=== PATIENT | male | born 1945 | race Caucasian/White ===

== ENCOUNTER 2022-11-26 14:17 | Inpatient (IN) | payer OTHER, MEDICARE ==
[~2022-11-26] VITALS: Ht 167.6 cm; Wt 89.7 kg
[2022-11-26 16:44] LABS: Base Excess Venous -2.3 mmol/L; Bicarbonate Venous 22.7 mmol/L (24.0-30.0); PCO2 Venous 37.7 mmHg (38-42); pH Blood Venous 7.39 (7.34-7.37)
[2022-11-26] MEDS ORDERED: ATOR80 PO (16:46)
[2022-11-26] MEDS ORDERED: AMLO10 PO (16:46)
[2022-11-26] MEDS ORDERED: MULVITA PO (16:46)
[2022-11-26] MEDS ORDERED: OMEP20ER PO (16:47)
[2022-11-26] MEDS ORDERED: TAMS.4ER PO (16:47)
--- NOTE | 2022-11-26 17:21 | NUR ---
PT ARRIVED TO THE MEDICAL FLOOR VIA [facility] FROM [facility] IN [facility]. PT IS ALERT DROWSY ORIENTED TO SELF AND SITTUATION. THE PT WAS ORIENTED TO THE CALL SYSTEM. CALL LIGHT IN REACH. PT HAS AUDIABLE WHEEZES. PT O2 SAT'S > 90% ON O2 @ 2L/MIN. DR. HERBERT WAS IN TO SEE THE PT. WILL CONTINUE TO MONITOR AND ASSESS FOR CHANGES
[2022-11-26 17:54] VITALS: BP 180/92
[2022-11-26 19:04] LABS: Source, Urine Foley catheter
[2022-11-26 19:16] LABS: Appearance, Urine Hazy (Clear); Bilirubin, Urine Neg (Neg); Blood, Urine 5+ (Neg); Color, Urine Yellow (P-Yellow); Glucose Qualitative, Urine 2+ (Neg); Ketones, Urine 4+ (Neg); Leukocyte Esterase, Urine 1+ (Neg); Nitrite, Urine Neg (Neg); Protein, Urine 3+ (Neg); Urobilinogen, Urine NORM (Normal)
[2022-11-26 19:25] VITALS: BP 176/98
[2022-11-26 19:34] LABS: Bacteria Mod /hpf; Mucus Light (0-Heavy); Red Blood Cells, Urine TNTC /hpf (0-2); Squamous Epithelial Cells Rare /hpf (Few)
[2022-11-26 19:47] VITALS: BP 176/98
--- NOTE | 2022-11-26 20:04 | NUR ---
FALL DURING END OF SHIFT REPORT THE PT YELLED OUT AFTER FALLING TO THE FLOOR. UPON ARRIVAL TO THE ROOM THE PT WAS ON THE FLOOR PULLING AT HIS IV LINE CATHETER AND WHATEVER ELSE HE COULD GRAB. THE STATED THAT SOMEONE WAS TRYING TO STANGLE HIM AND HE WAS TRYING TO GET AWAY. PT STATED THAT HE HIT HIS HEAD. A CALL WAS MADE TO THE HOSPITALIST A CT OF THE HEAD WAS ORDERED. PT IS VERY AGITATED. NOC RN WAS IN THE ROOM REPORT WAS GIVEN
--- NOTE | 2022-11-26 20:20 | NUR ---
SOFT WRIST RESTRAINTS INITIATION: LUIZ POLO NOTIFIED OF PT'S ESCALATING BEHAVIOR W/INCREASED CONFUSION AND AMS. HE IS CONFUSED EXCEPT TO SELF AND FELL DURING SHIFT CHANGE AFTER BEING IMPULSIVE OOB BY SELF. HE REMAINS AGGITATED, DIFFICULT TO REDIRECT, IS HALLUCINATING, DOESN'T FOLLOW INSTRUCTION AND HAS BECOME VERY IMPULSIVE AND COMBATIVE. HE'S BEEN PULLING ON GAGNON/IV LINE, HAS SWUNG AT STAFF MULTIPLE TIMES AND HAS THROWN WATER CUPS IN HIS ROOM. HE'S YELLING AND CALLING OUT INCONSOLABLY AND HAS BEGUN MAKING VERBAL THREATS TOWARD STAFF. STAT IM ZYPREXA WAS RX'D AND GIVEN BUT HASN'T BEEN EFFECTIVE AT CALMING PT YET. CAMERA MONITORING WAS COMMENCED AND IS IN PROGRESS W/BED ALARM ON. SOFT WRIST RESTRAINTS ORDERED AND APPLIED AT THIS TIME. WILL REEVALUATE ABILITY TO DC THEM IF PT CALMS AND AMS IMPROVES.
[2022-11-27 01:02] VITALS: BP 180/98
--- NOTE | 2022-11-27 03:06 | NUR ---
PT MANAGED TO GET OUT OF WRIST RESTRAINT AND PULLED HIS NEW IV THAT WAS PLACED EARLIER THIS SHIFT DESPITE BEING MONITORED BY CAMERA. HE WAS ALSO OBSERVED PULLING ON GAGNON, RIPPED OFF HIS ATTENDS AND WAS MAKING ATTEMPTS OOB BY SELF. HIS HR IS NOW SUSTAINING 100'S AND OCCASIONALLY TRENDS UPWARD TO 140'S-150'S. HE IS VERY ANXIOUS, CONT'S TO HALLUCINATE AND IS DOESN'T FOLLOW INSTRUCTION. HE'D BECOME A BIT CALMER FOLLOWING PRIOR DOSE OF ZYPREXA BUT BEHAVIOR SEEMS TO BE ESCALATING AGAIN. MADE AWARE W/ZYPREXA 10MG IM RX'D AND TO BE ADMINISTERED. PT ALSO COMMENCED ON TELEMETRY AND CAMERA MONITORS ALERTED TO WATCH HIM MORE CLOSELY.
[2022-11-27 05:01] VITALS: BP 169/149
[2022-11-27 05:10] VITALS: BP 171/135
--- NOTE | 2022-11-27 06:10 | NUR ---
SUMMARY: PT ORIENTED TO SELF ONLY AND CONT'S TO BE ANXIOUS W/HALLUCINATIONS, IS DIFFICULT TO REDIRECT AND IS FREQUENTLY IMPULSIVE. BEHAVIOR IS LABILE AND CAN ESCALATE QUICKLY, BECOMING AGGRESSIVE AND COMBATIVE AT TIMES, SWINGING AT STAFF. HE FELL DURING REPORT AT BEGINNING OF SHIFT AND HAS SINCE REQUIRED SOFT WRIST RESTRAINTS, CAMERA MONITORING, BED ALARM AND X2 DOSES OF IM ZYPREXA STAT. MEDICATIONS SLIGHTLY CALM PT BUT EFFECTS AREN'T LONG LASTING. HR WAS TACHYCARDIC ON CONT BIOX SO PT WAS PLACED ON TELEMETRY. HE'S S.TACH AT 90'S-100'S BPM W/OCC V.TACH TO 140'S BPM LASTING APPROX 2-3 MINS THEN TRENDING DOWN AGAIN. PT HYPERTENSIVE AT TIMES AND REQ'D HYDRALAZINE IV PRN FOR SBP>160. CHELSI IS PATENT FOR RETENTIONS. HE IS VERY IMPULSIVE AND PULLED HIS PG OUT + HIS 1ST NEWLY PLACED IV DESPITE WRIST RESTRAINTS. NEW IV PRESENT AT THIS TIME W/NS INFUSING AT 75 ML/HR. PT TITRATED UP TO 3L O2 VIA NC TO MAINTAIN SPO2 >90%, CONT BIOX INTACT AND RT PROVIDED BX TX'S FOR WHEEZES. TURN SCHEDULE MAINTAINED FOR SBD PREVENTION. NO ACUTE CHANGES. WCTM AND REPORT TO DAY RN.
--- NOTE | 2022-11-27 06:45 | NUR ---
ALERTED TO V.TACH NOW SUSTAINING HR 120'S-140'S. LOPRESSOR IV X1 RX'D BUT IV NOTED TO HAVE INFILTRATED JUST PRIOR TO ADMINISTERING AM MEDS. ISI ATTEMPTING PG PLACEMENT AT THIS TIME. WILL ADMIN SCHEDULED SOLUMEDROL, STAT LOPRESSOR AND PRN TORADOL WHEN IV ACCESS OBTAINED.
[2022-11-27 07:22] VITALS: BP 185/97
[2022-11-27 08:27] LABS: Hematocrit 41.7 % (37.0-53.0); Hemoglobin 14.5 g/dL (13.5-17.5); Mean Corpuscular HGB 30.4 pg (26.0-34.0); Mean Corpuscular HGB Conc 34.8 g/dL (31.5-36.5); Mean Corpuscular Volume 87 fL (80-100); Mean Platelet Volume 10.4 fL (9.1-12.4); Platelet Count 254 K/mm3 (150-400); RDW Coefficient Variation 13.1 % (11.7-14.2); RDW Standard Deviation 41.6 fL (35.1-46.3); Red Blood Cell Count 4.77 M/mm3 (4.30-5.90); White Blood Cell Count 7.82 K/mm3 (4.00-11.30)
[2022-11-27 08:51] LABS: Bun/Creatinine Ratio 20.9 (12.0-20.0); Calcium, Blood 8.7 mg/dL (8.5-10.1); Creatinine, Blood 0.48 mg/dL (0.60-1.20); Magnesium, Blood 2.3 mg/dL (1.6-2.4)
--- NOTE | 2022-11-27 09:46 | NUR ---
PT ASIPRATING WITH SMALL AMOUNTS OF FOOD AND LFUIDS, PT WILL BE NPO HE IS A HIGH ASPIRATION RISK
--- NOTE | 2022-11-27 11:18 | NUR ---
ATTEMPTED TO REMOVE RESTRAINTS ER V/O FROM DR HERBERT, PT REMAINS VERY CONFUSED AND WAS IMMEDIATELY ATTEMPTING TO EXIT BED AND IS COMBATIVE
--- NOTE | 2022-11-27 15:19 | NUR ---
Pt aggitated and hallucinating. face is mask like and seems unable to blink much eyes are very dry. pt rigid. he was seeing people in the room. Was able to have some conversation with him. Asked where he grew up and where he lived. He stated he grew up in [place] and went into the at [employer] and did ten years. 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 He moved to [place]. Did some therputic time with him told him my home town in [place]. He laughed about how awful it was and asked how i survied. He had brief moments then would halucinate. PT is suffering discussed with rn patient care and physician. Obtained order for eye drops. Will see what speech says tomorrow and then speak to his siter about comfort care and hospice. grocery store manager will contact DC. KPS score is 30%. Concern that his abilty to ventilate will soon start to decline.
[2022-11-27 17:31] VITALS: BP 195/105
--- NOTE | 2022-11-27 18:27 | NUR ---
PT ARRIVED TO ROOM AROUND 1814. PT ORIENTED TO [facility]. RESTRAINTS CHECKED, NO CIRCULATION IMPAIRMENT, NO SKIN BREAKDOWN. BED IN LOW POSITION AND LOCKED. PT LEFT IN A POSITION OF SAFETY.
--- NOTE | 2022-11-27 18:47 | NUR ---
SHIFT SUMMARY PT ORIENTED TO SELF ONLY. RESTRAINTS CHECKED AND NO ABNORMALITIES FOUND. PT ON 3L O2 VIA N/C, CONTINUOUS TELEMETRY REPORTS SINUS TACH IN THE 110S. IV FLUIDS INFUSING THROUGH POWERGLIDE AT A RATE OF 125L/HR. BED LOCKED AND IN LOW POSITION, PATIENT MONITOR IN ROOM FOR OBSERVATION.
[2022-11-27 21:09] VITALS: BP 190/92
[2022-11-28] VITALS (18 sets, daily range): BP systolic 98–215; BP diastolic 61–172
--- NOTE | 2022-11-28 00:40 | NUR ---
PT REPOSITIONED FREQUENTLY THROUGHOUT THE SHIFT. Q2 SAFETY CHECKS COMPLETED, PT HAD SOFT WRIST RESTRAINTS ON. 2255: PT RESTLESS, PRN IM ZYPREXA GIVEN FOR AGITATION. 0045: PT RECEIVED IV TORADOL FOR PAIN. RT WAS CALLED AND BREATHING TREATMENT WAS GIVEN. PT A&O x1 TO SELF. WCTM.
--- NOTE | 2022-11-28 01:42 | NUR ---
Pt. has been very anxious this shift, pulling on catheter, bag had to be replaced due to him pulling it off even with the soft wrist restraints in place. pulling off Telemetry wires and stickers. RN's are aware.
--- NOTE | 2022-11-28 04:37 | NUR ---
PT DENIED CHEST PAIN, AND NO HEADACHE. PT REPORTED HAVING SOME SHORTNESS OF BREATH. PRN IV LABETALOL GIVEN. WILL RE-CHECK BP.
[2022-11-28 07:27] LABS: Bun/Creatinine Ratio 31.8 (12.0-20.0); Calcium, Blood 8.7 mg/dL (8.5-10.1); Creatinine, Blood 0.69 mg/dL (0.60-1.20); Potassium, Blood 3.7 mmol/L (3.5-5.5)
--- NOTE | 2022-11-28 13:02 | NUR ---
PHYSICIAN CONTACT CONTACTED DR MEIER SEVERAL TIMES THIS SHIFT WITH CONCERNS WITH PATIENT'S CONDITION, INCREASED WOB AND CONTINUATION OF RESTRAINTS DUE TO PULLING AT LINES. MEDICATIONS CHANGED SEVERAL TIMES. DR. MEIER IN TO SEE PATIENT SEVERAL TIMES. SOME RELIEF WITH ROXANOL ADMINISTRATION.
[2022-11-28 17:10] LABS: PCO2 Arterial 39.3 mmHg (35-45); PO2 Arterial 71.5 mmHg (80-100); pH Blood Arterial 7.37 (7.35-7.45)
--- NOTE | 2022-11-28 18:12 | NUR ---
PHYSICIAN CONTACT CONTACTED DR MEIER REGARDING INEFFECTIVE BREATHING TREATMENTS AND ANXIOLYTICS HAVING OPPOSITE DESIRED EFFECT. STATED HE WILL ATTEMPT TO CONTACT SISTER AGAIN AND HE WILL THINK ON WHAT TO DO NEXT. WILL CONTINUE TO MONITOR
--- NOTE | 2022-11-28 18:58 | NUR ---
SHIFT SUMMARY DR MEIER MADE DECISION TO TRANSFER TO ICU. WILL CALL REPORT. PATIENT IN BED INTERMITTENTLY THRASHING, STRIDOR AIRWAY SOUNDS PRESENT, LABORED BREATHING, MAINTAINING SATS AT 3.5 LITERS O2. WILL CONTINUE TO MONITOR
[2022-11-28 19:19] LABS: Bun/Creatinine Ratio 35.9 (12.0-20.0); Calcium, Blood 8.5 mg/dL (8.5-10.1); Creatinine, Blood 0.78 mg/dL (0.60-1.20); Potassium, Blood 3.7 mmol/L (3.5-5.5)
--- NOTE | 2022-11-28 19:40 | NUR ---
TRANSFER NOTE PT TRANSFERRED FROM ROOM 353 TO ICU 8 FOR COPD EXACERBATION AND EXTREME AGITATION W/MD ORDERS FOR BIPAP AND PRECEDEX. PT ARRIVED VERY AGITATED BUT NONVERBAL. PT WAS PLACED ON BIPAP BY RT. PRECEDEX DRIP STARTED AND PT CONNECTED TO THE SHAFTING CLEANER. PT IS NOT FOLLOWING DIRECTIONS AT THIS TIME, PASTRANA. HE IS UNABLE TO REDIRECTED CURRENTLY OR REORIENTED, PT IS ORIENTED ONLY TO SELF.
[2022-11-28 19:50] LABS: Adenovirus Not Detected (NOT DETECT); Bordetella pertussis Not Detected (NOT DETECT); Chlamydophila pneumoniae Not Detected (NOT DETECT); Coronavirus 229E Not Detected (NOT DETECT); Coronavirus HKU1 Not Detected (NOT DETECT); Coronavirus NL63 Not Detected (NOT DETECT); Coronavirus OC43 Not Detected (NOT DETECT); Human Metapneumovirus Not Detected (NOT DETECT); Human Rhinovirus/Enterovirus Not Detected (NOT DETECT); Influenza A/2009-H1 Not Detected (NOT DETECT); Influenza A/H1 Not Detected (NOT DETECT); Influenza A/H3 Not Detected (NOT DETECT); Influenza B Not Detected (NOT DETECT); Mycoplasma pneumoniae Not Detected (NOT DETECT); Parainfluenza Virus 1 Not Detected (NOT DETECT); Parainfluenza Virus 2 Not Detected (NOT DETECT); Parainfluenza Virus 3 Not Detected (NOT DETECT); Parainfluenza Virus 4 Not Detected (NOT DETECT); Respiratory Syncytial Virus Not Detected (NOT DETECT); SARS-Cov-2 (COVID-19), BioFire Not Detected (NOT DETECT)
[2022-11-29] VITALS (52 sets, daily range): BP systolic 128–199; BP diastolic 67–172
--- NOTE | 2022-11-29 00:49 | NUR ---
PT HAD 18 BEAT RUN OF VTAC ON THE WEB UI DESIGNER. NO OTHER ACUTE CHANGES, RETURN TO BASELINE SR W/OUT INTERVENTION. DR HILL NOTIFIED. ORDERS GIVEN.
[2022-11-29 01:21] LABS: Calcium, Blood 8.2 mg/dL (8.5-10.1); Creatinine, Blood 0.65 mg/dL (0.60-1.20); Phosphorus, Blood 3.3 mg/dL (2.5-4.9); Potassium, Blood 3.6 mmol/L (3.5-5.5)
--- NOTE | 2022-11-29 06:18 | NUR ---
DOCTOR NOTIFY CALLED AND INFORMED DR. LEIJA OF CRITICAL GLUCOSE AND OTHER LABS. ORDERS RECEIVED. ALSO UPDATED MD ON VASOPRESSIN AND LEVOPHED DRIPS. ORDERS RECEIVED.
[2022-11-29 06:38] LABS: Bun/Creatinine Ratio 52.8 (12.0-20.0); Calcium, Blood 8.3 mg/dL (8.5-10.1); Creatinine, Blood 0.53 mg/dL (0.60-1.20); Potassium, Blood 3.7 mmol/L (3.5-5.5)
[2022-11-29 06:54] LABS: Source, Urine Foley catheter
[2022-11-29 06:57] LABS: Appearance, Urine Hazy (Clear); Bilirubin, Urine Neg (Neg); Blood, Urine 2+ (Neg); Color, Urine Yellow (P-Yellow); Glucose Qualitative, Urine 1+ (Neg); Ketones, Urine 3+ (Neg); Leukocyte Esterase, Urine Neg (Neg); Nitrite, Urine Neg (Neg); Protein, Urine 2+ (Neg); Urobilinogen, Urine NORM (Normal)
[2022-11-29 07:17] LABS: Amorphous Mod (0-Heavy); Bacteria Rare /hpf; Squamous Epithelial Cells Not Seen /hpf (Few); White Blood Cells, Urine 0-2 /hpf (0-5)
--- NOTE | 2022-11-29 11:52 | NUR ---
REASSESSMENT PRECEDEX WAS TITRATED OFF THIS MORNING AND PT IS MINIMALLY RESPONSIVE. HE OPENED HIS EYES BRIEFLY TO PAINFUL STIMULI AND HAS ONLY MADE A FEW GROANS. PT GIVEN BREAK FROM BIPAP FOR ABOUT AN HOUR AND MAINTAINED SPO2 ABOVE 92% ON 4L OXIMASK. BACK ON BIPAP NOW. LUNGS ARE CLEAR. NON PRODUCTIVE COUGH WHEN PT WAS OFF OF BIPAP, WEAK GAG AT THAT TIME. SR, BP HYPERTENSIVE THIS MORNING, BUT SBP CAME DOWN TO 130S WITH BREAK FROM BIPAP AND HAS REMAINED AROUND THE 130S. GAGNON HAS YELLOW OUTPUT WITH WH ITE SEDIMENT. DR. HERBERT SPOKE WITH PT'S SISTER THIS MORNING AND PROVIDED HER WITH UPDATE ON PT'S CONDITION AFTER PT HAD BEEN OFF OF PRECEDEX FOR ABOUT [address] HERBERT REPORTS THAT IF PT DOESN'T HAVE AN IMPROVEMENT IN MENTAL STATUS, HIS SISTER WOULD LIKE TO PURSUE COMFORT CARE AND HOSPICE.
--- NOTE | 2022-11-29 14:20 | NUR ---
Case Conference Note Spoke with Primary RN Trang, RN Heat Treater Helper Mikala, and discussed case. Pt is more somnolant today. Dr Keyes is in contact with Pt's sister (ARMANDO) Dora. Potential plan to move forward with comfort care. Received call from Pt's sister Dora who reports upon D/C she would like assistance with placing Pt into facility with hospice services. [facility] reports [facility] if goal is hospice. She is requesting placement into a specific facility in [place]. Dora reports plan to here from Dr Keyes regarding potential comfort care here at the hospital. No other concerns reported at this time. Relayed request to RN Heat Treater Helper Mikala for specific facility. Palliative Care will remain available
--- NOTE | 2022-11-29 15:13 | NUR ---
PT IS MORE ALERT, ABLE TO STATE HIS NAME, ANSWERS NO TO BEING IN PAIN AND KNOWING WHERE HE IS. PT REORIENTED. PT ABLE TO SQUEEZE BOTH HANDS AND WIGGLE TOES OF L FOOT. WHEN ASKED TO WIGGLE TOES OF R FOOT PT KEEPS JUST WIGGLING THE L FOOT. PT'S HR HAS ALSO JUMPED UP TO THE 140S, BP REMAINS STABLE AT 141/94. DR. HERBERT UPDATED ON THESE EVENTS. GAVE ORDERS FOR IV METOPROLOL AND TO TRANSFER TO PCU. DR. HERBERT STATED HE WILL UPDATE PT'S SISTER. WHILE WAITING FOR METOPROLOL TO BE AVAILABLE, PT'S HR DROPPED DOWN TO THE LOW 100S. WILL CONTINUE TO MONITOR.
--- NOTE | 2022-11-29 18:07 | NUR ---
SHIFT SUMMARY PT WAS OBTUNDED THIS MORNING, ONLY OPENING HIS EYES BRIEFLY TO PAINFUL SITMULI, BUT THIS EVENING HE WOKE UP AND IS NOW ALERT AND ORIENTED TO SELF. HE IS COMMUNICATING APPROPRIATELY, FOLLOWS COMMANDS, FORGETS WHERE HE IS AND DOESN'T KNOW THE DATE. HE SOMETIMES HAS TROUBLE FINDING THE RIGHT WORD WHEN TALKING. HIS UPPER AIRWAY HAS BEEN WHEEZY SINCE TAKING THE BIPAP OFF THIS EVENING, HIS LOWER LUNG SOUNDS ARE CLEAR. HE REMAINS ON 4L OXIMASK. HE HAS BEEN SR WITH OCCASIONAL PAC. THIS AFTERNOON HE SWITCHED TO AFIB AND HAD SOME RUNS OF RVR WITH RATE HIGH 160. PT WAS GIVEN HIS PO METOPROLOL CRUSHED IN APPLESAUCE AFTER TRIALLING HIS SWALLOW WITH TEASPOONS OF WATER. HE ALSO ENDED UP REQUIRING A DOSE OF IV METOPROLOL FOR RATE CONTROL WHEN HIS HR WAS 160 AND COUGHING AND BEARING DOWN DID NOT RESOLVE IT. GOOD OUTPUT FROM FOELY, SEE I/O. STILL YELLOW WITH SEDIMENT. CONTINUING TO MONITOR.
--- NOTE | 2022-11-29 20:37 | NUR ---
ASSUMED CARE OF PATIENT AT 1900 HE IS ALERT TO SELF AND THAT HE IS IN THE HOSPITAL, BUT IS UNAWARE TO VERBALIZE HIS REASON FOR ADMISSION. HE CANNOT RECALL THE DATE EITHER. SR IN HIGH 80'S. BP CUFF WAS NOT READING, READJUSTED AND STARTED WITH SYSTOLIC IN 190'S, RECHECK 180'S. PRN LABETALOL ADMINISTERED. WHEEZES AUSCULATED BILATERALLY IN UPPER AIRWAY. HE IS CURRENTLY ON BIPAP WITH 3LPM O2 VIA OXIMASK. GAGNON IS PLACED, DRAINING CLEAR YELLOW URINE WITH MILD SEDIMENT. LAST BM UNKNOWN. PIV TO L WRIST, FLUSHES WELL WITH NO BLOOD RETURN. PICC TO LAWSON FLUSHES WELL WITH NO BLOOD RETURN. 1/2NS RUNNING.
[2022-11-30] VITALS (16 sets, daily range): BP systolic 145–186; BP diastolic 85–148
[2022-11-30 03:47] LABS: BASOPHILS ABSOLUTE AUTO 0.02 K/mm3 (0.00-0.23); BASOPHILS PERCENT AUTO 0 % (0-2); EOSINOPHILS PERCENT AUTO 0 % (0-6); Hematocrit 41.3 % (37.0-53.0); Hemoglobin 13.9 g/dL (13.5-17.5); IMMATURE GRAN ABSOLUTE AUTO 0.11 K/mm3 (0.00-0.10); IMMATURE GRAN PERCENT AUTO 1 % (0-1); LYMPHOCYTES ABSOLUTE AUTO 0.36 K/mm3 (0.84-5.20); LYMPHOCYTES PERCENT AUTO 3 % (21-46); MONOCYTES PERCENT AUTO 5 % (4-13); Mean Corpuscular HGB 30.1 pg (26.0-34.0); Mean Corpuscular HGB Conc 33.7 g/dL (31.5-36.5); Mean Corpuscular Volume 89 fL (80-100); Mean Platelet Volume 10.3 fL (9.1-12.4); NEUTROPHILS ABSOLUTE AUTO 9.76 K/mm3 (1.96-9.15); NEUTROPHILS PERCENT AUTO 91 % (41-73); Platelet Count 227 K/mm3 (150-400); RDW Standard Deviation 45.4 fL (35.1-46.3); Red Blood Cell Count 4.62 M/mm3 (4.30-5.90); White Blood Cell Count 10.75 K/mm3 (4.00-11.30)
[2022-11-30 04:09] LABS: Albumin, Blood 2.9 g/dL (3.4-5.0); Albumin/Globulin Ratio 0.9 (0.8-1.8); Bilirubin, Total 0.5 mg/dL (0.1-1.0); Bun/Creatinine Ratio 32.1 (12.0-20.0); Calcium, Blood 8.3 mg/dL (8.5-10.1); Creatinine, Blood 0.69 mg/dL (0.60-1.20); Globulin, Blood 3.3 g/dL (2.2-4.0); Total Protein, Blood 6.2 g/dL (6.4-8.2)
--- NOTE | 2022-11-30 05:35 | NUR ---
END OF SHIFT SUMMARY NEURO: A&O TO SELF ONLY. HE IS ABLE TO RECALL HIS BIRTHDATE DURING MED ADMINISTRATIONS. INCREASING CONFUSION DURING THE SHIFT WITH PATIENT CONCERNED THAT HIS LINES AND TUBES ARE NOT COMING FROM THE CEILING. MILD TREMORS IN BUE. CARDIAC: HYPERTENSIVE WITH SBP IN 190'S AND HR IN 100'S. ONE DOSE OF IV LABETALOL WAS ADMINISTERED. BP FLUCTUATED THROUGHOUT THE ENTIRETY OF THE SHIFT AND TYPICALLY CAME DOWN ONCE PATIENT WAS REDIRECTED AND OXIMASK WAS REAPPLIED CORRECTLY PATIENT WOULD FREQUENTLY REMOVE IT. IV LOPRESSOR ADMINISTERED SBP EXCEEDED 170 WITH HR IN 100'S. RESP: BILATERAL WHEEZING AUSCULTATED. CURRENTLY ON 5LPM O2 VIA OXIMASK WITH SATURATION IN 90'S. RECEIVED NEB TREATMENTS FROM RT. GI: LAST BOWEL MOVEMENT UNKNOWN. : GAGNON REMOVED AT 2200, ATTENDS IN PLACE. PIV TO L WRIST, FLUSHES AND DRAWS WELL. POWERGLIDE TO LAWSON, FLUSHES WELL, NO BLOOD RETURN. WILL CONTINUE TO MONITOR AND REPORT TO ONCOMING RN APPROPRIATE.
--- NOTE | 2022-11-30 05:56 | NUR ---
MANUAL BLOOD PRESSURE MANUAL BLOOD PRESSURE OBTAINED D/T ELEVATED BP READINGS. BP FROM R WRIST READ 158/96, FOLLOWED BY IMMEDIATE ELECTRONIC CUFF READING OF 186/111. WILL CONTINUE TO MONITOR AND NOTIFY ONCOMING RN INDICATED.
--- NOTE | 2022-11-30 07:23 | NUR ---
Assumed care. Bedside report received from nightshift RN. Pt resting in bed, on 02 via facemask at 5 L/min. NS infusing at 100 ml/hr. No acute needs at this time. Will continue to monitor.
--- NOTE | 2022-11-30 09:36 | NUR ---
Transferred care of pt at approximately 0915. Report given to RN assuming care. Pt VS stable at time of report, no acute needs. Pt moved from ICU9 to ICU room 3, all belongings moved with patient.
--- NOTE | 2022-11-30 12:00 | NUR ---
PT RESTLESS IN BED. CONSTANTLY PICKING AT LINES. PLEASANT BUT ONLY REDIRECTS BRIEFLY. 1:1 SITTER IMPLEMENTED FOR SAFETY. PT CHATS WITH SITTER CONTINUOUSLY.
--- NOTE | 2022-11-30 17:25 | NUR ---
SUMMARY PT ALERT. ORIENTED TO SELF. PT IS SEEING PEOPLE THAT ARE NOT THERE AND HAS CONFUSED CONVERSATION. HAS DEMENTIA AT BASELINE. PT IS PLEASANT AND ONLY REDIRECTABLE FOR A COUPLE MINUTES. REQUIRES 1:1 SITTER TO KEEP LINES FROM GETTING PULLED OUT. DOWNGRADED TO MEDICAL STATUS. PT BEING TRANSFERED TO ROOM 350. REPORT GIVEN TO WEI RIZZO.
--- NOTE | 2022-11-30 18:30 | NUR ---
ICU TRANSFER AT 1730: RECEIVED REPORT FROM KEVIN RIZZO. PT PLACED IN BED, MADE COMFORTABLE. IS CONFUSED & TALKATIVE. 1:1 SITTER AT BEDSIDE. CONDOM CATH PLACED. PT IS INCONT OTHERWISE.
--- NOTE | 2022-11-30 18:32 | NUR ---
pt talking with sitter and trying to converse. rod and updated his sister the plan is to DC with hospice. My need to transition to comfort. Will call his eye clinic. Sister states he has had many eye issues is gettin injections. Will update hospice team.
[2022-12-01 03:56] VITALS: BP 195/104
[2022-12-01 04:21] LABS: PCO2 Arterial 41.9 mmHg (35-45); PO2 Arterial 92.1 mmHg (80-100); pH Blood Arterial 7.41 (7.35-7.45)
[2022-12-01 06:43] VITALS: BP 162/91
--- NOTE | 2022-12-01 07:31 | NUR ---
SHIFT SUMMARY PATIENT A/O TO SELF, CONFUSED. FREQUENTLY ATTEMPTING TO GET UP OUT OF BED. CONTINUES ON 1:1 FOR PATIENT SAFETY. HYPERTENSIVE, PROVIDER AWARE, RECEIVED NEW ORDERS FOR ONE TIME IVP LASIX AND PRN HYDRALIZINE. BED LOCKED, IN LOW POSITION WITH HOB ELEVATED FOR PATIENT COMFORT, CALL LIGHT WITHIN REACH.
[2022-12-01 07:52] VITALS: BP 176/99
[2022-12-01 15:38] VITALS: BP 135/87
--- NOTE | 2022-12-01 17:50 | NUR ---
SHIFT SUMMARY PT IS CONFUSED, NOT REDIRECTABLE, PT REQUIRES CONSTANT REDIRECTION THOUGH WITHOUT THE COGNITIVE ABILITY TO UNDERSTAND REDIRECTION, IS RESTLESS, FIDGETY, ATTEMPTS TO GET OOB, IS HIGH FALL RISK. PER MD PT REQUIRES 1:1 SITTER. MD & FAMILY SPOKE, ORDERS RECEIVED FOR COMFORT CARE. MEDICATED PER EMAR PER COMFORT CARE ORDERS WITH MINIMAL TO MODERATE EFFECT TO RELAX PT. PT HAS FALLEN ASLEEP FOR SMALL PERIODS OF TIME SINCE BEING MEDICATED, OTHERWISE PT DOES NOT SLEEP, IS CONSTANTLY VERBAL. HIS BP THIS AFTERNOON IS IMPROVED. SBP IN THE 130'S. 1:1 SITTER AT BEDSIDE THROUGHOUT SHIFT.
--- NOTE | 2022-12-02 06:13 | NUR ---
SHIFT SUMMARY PATIENT A/O MOSTLY TO SELF. ODD HAND GESTURES/MOVEMENT, APPEARES TO BE HAVING AUDITORY AND VISUAL HALLUCINATIONS. UNABLE TO REDIRECT, REQUIRES 1:1 THROUGHOUT MOST OF SHIFT. FREQUENT ATTEMPTS TO GET UP OUT OF BED. RECEIVED MEDICATION PER ORDER FOR INCREASED AGITATION, FACIAL GRIMACING, SIGNS OF AIR HUNGER. TOLERATED WELL WITH REDUCED AGITATION, RESTLESSNESS. ASLEEP THROUGHOUT MOST OF SHIFT. AT 05:30 PATIENT APPEARED IN DISTRESS, AIR HUNGER, MEDICATED PER JUN, TOLERATED WELL. ATTEMPTED TO CALL PATIENT'S SISTER, NO ANSWER, WILL TRY AGAIN AT SHIFT CHANGE. 1:1 CANCELLED, NO LONGER NEEDED, PATIENT RESTING SOUNDLY IN BED AT THIS TIME IN NO APPARENT DISTRESS.
--- NOTE | 2022-12-02 16:24 | NUR ---
SPOKE WITH PT'S SISTER SANDRA (POA) SPOKE WITH SANDRA VIA PHONE CALL, SANDRA STATED SHE HOPED PT COULD COME HOME TO [place] ON HOSPICE. PT RESIDES WITH HER IN [place]. SANDRA REPORTS HOWEVER SHE HAS A RECENT ANKLE FXR & IS NOT SURE HOW CAPABLE SHE MIGHT BE TO TAKE CARE OF HER BROTHER.
--- NOTE | 2022-12-02 17:34 | NUR ---
SHIFT SUMMARY PT WILL OCCASIONALLY AROUSE AND IS ORIENTED TO SELF ONLY & WILL REACH OUT WITH ARMS THOUGH TRYING TO PERFORM A TASK, MUMBLES TO SELF REFERRING TO PEOPLE, PLACES & THINGS ONLY HE SEES & HEARS. IS COMFORT CARE. MEDICATED PERIODICALLY PER EMAR FOR S/S OF AIR HUNGER AND RESTLESSNESS WITH GOOD EFFECT. PT IS ON RA. ATROPINE PATCH PLACED BEHIND R EAR PER EMAR. PLAN IS HOSPICE UPON DC.
--- NOTE | 2022-12-03 05:36 | NUR ---
SHIFT SUMMARY PATIENT A/O TO SELF. APPEARES INTERNALLY PREOCCUPIED, RESPONDING TO VISUAL/AUDITORY HALLUCINATIONS. RESTLESS AT BEGINING OF SHIFT, SINGLE ATTEMPT TO GET UP OUT OF BED. RECEIVED MEDICATION PER MAR FOR COMFORT AND S/Sx OF AIR HUNGER, TOLERATED WELL. ASLEEP THROUGHOUT MOST OF SHIFT. CONTINUES ON COMFORT CARE. BED LOCKED, IN LOW POSITION, HOB ELEVATED FOR PATIENT COMFORT, CALL LIGHT WITHIN REACH. BED ALARM ON FOR PATIENT SAFETY. WILL CONTINUE HOURLY ROUNDING TO ADDRESS PATIENT NEEDS TILL CHANGE OF SHIFT.
--- NOTE | 2022-12-03 08:00 | NUR ---
PT QUIET, RESPONDS SOME TO VERBAL STIMULI. NOT ANSWERING QUESTIONS. MUMBLES MINIMALLY, NOT UNDERSTANDABLE. DENIES PAIN AT THIS TIME. ON COMFORT CARE. NOT EATING NOT AWAKE ENOUGH TO SWALLOW SAFELY, AND NOT ABLE TO TAKE PILLS SAFELY. ATTENDS CLEAN, DRY. H/R ABOUT 65, LUNGS COARSE EXPIRATORY. DIM BASES. BED IN LOW POSITION, CALL LITE IN REACH, BED ALARM ON FOR SAFETY.
--- NOTE | 2022-12-03 11:32 | NUR ---
SISTER ARMANDO CALLED. [phone]. STATES THINKS EMILY, HER BROTHER, SHOULD COME HOME ON HOSPICE, SHE PERSONALLY NOT ABLE TO CARE FOR HIM. ASKED CARE MANAGEMENT TO CALL HER.
--- NOTE | 2022-12-03 16:04 | NUR ---
ABOUT 2PM DAUGHTER CALLED. UPDATED WITH PT AGNES, THAT ABOUT ALL INTERACTION I HAVE RECEIVED. NOSTLY NOT UNDERSTANDABLE. SHE REQUEST TALK TO HIM AND SAY HER GOODBYE'S. TOLD HER I'D HOLD PHONE FOR HER. WHEN IN ROOM, HE WOKE UP AND SPOKE TO ME. I CLEANED HIS MOUTH, GOT HIM TO SIP SOME WATER. THEN DAUGHTER ON PHONE. HE SPOKE TO HER SOME, MORE CLEARLY, SOMEWHAT UNDERSTANDABLY. OFFERED FOOD, DRIINK, WHICH HE REFUSED. HAS SINCE GONE BACK TO RESTING QUITELY. DENIES PAIN. BED IN LOW POSITIOIN, CALL LITE IN REACH, CALLS APPROP
--- NOTE | 2022-12-03 18:15 | NUR ---
PT AWAKENED AGAIN DURING ATTENDS CHANGE. DID C/O GENERAL PAIN. MEDICATED PER EMAR. PT HAS BEEN AWAKE TWICE DURING CALLS TO DAUGHTER AND FRIEND. WHEN AWAKE THIS AFT. OFFERED FOOD, HE REFUSED, OFFERED WATER, HE HAD A FEW SIPS. THAT WAS ALL. OCCATIONALLY SOME SENSICAL SPEACH. OFTEN MUMBLING NONSENSICAL. KEEPING CLEAN AND DRY. NO OTHER CONCERNS NOTED TODAY.
--- NOTE | 2022-12-04 04:54 | NUR ---
SHIFT SUMMARY; NO ACUTE CHANGES OVERNIGHT. THE PT HAS BEEN AWAKE T/O THE NIGHT. THE PT IS ABLE TO TALK AT TIMES AND OTHER TIMES SPEECH IS INCOMPREHENSIBLE. THE PT HAS BEEN HALLUCINATING T/O THE NIGHT. AT TIMES THE PT IS SHIFTING IN BED OFTEN AND OTHERTIMES HE IS COMPLETELY STILL. THE PTS FAMILY ARRIVED AND HAS BEEN AT BEDSIDE SINCE 0130. THE PT HAS BEEN MEDICATED FOR PAIN/HUNGER TWICE THIS EVENING W/ 10MG OF ROXANOL. CURRENTLY THE PT IS SLEEPING IN BED WITH THE BED IN THE LOWEST POSITION AND THE CALL LIGHT AT BEDSIDE. THIS PT IS COMFORT CARE STATUS. FIRE SAFETY MAINTAINED T/O THE NIGHT.
[2022-12-04 13:43] LABS: SARS-Cov-2 (COVID-19) PCR, MMC NEGATIVE (NEGATIVE)
--- NOTE | 2022-12-04 17:42 | NUR ---
PT HALLUCINATING SOME TODAY. WHEN HE CALLS OUT FOR PAIN, HE IS MEDICATED. CALMS DOWN QUICKLY. FAMILY AT BEDSIDE MUCH TODAY. THEIR PHONE NUMBERS ON WALL. REQUESTED CALL IF HE TAKES TURN DOWN THRU PM. KEEPING HIM DRY AND TURNED. HE TALKS OCCATIONALLY, MOSTLY MUMBLING, BUT OCC IS UNDERSTANDABLE . BED IN LOW POSITION, CALL LITE IN REACH, BED ALARM ON FOR SSAFETY
--- NOTE | 2022-12-05 04:36 | NUR ---
SHIFT SUMMARY; COMFORT CARE PT, THE PT HAS BEEN SLEEPING FOR THE MAJORITY OF THE NIGHT. THE PTS FAMILY CAME IN FROM [phone] TO VISIT HIM. PT AWAKES TO VERBAL STIMULI, BUT HIS SPEECH HAS BEEN INCOMPREHENSIBLE T/O THE NIGHT. THE PT IS BEDREST AT THIS POINT. THE PT DOES STILL SHIFT AND MOVE IN BED INDEPENDENTLY FREQUENTLY. THE PT DENIES ANY PAIN T/O THE SHIFT. CURRENTLY THE PT IS SLEEPING IN BED WITH THE BED IN THE LOWEST POSITION AND THE CALL LIGHT WITHIN REACH. [facility]. FIRE SAFETY MAINTAINED T/O THE SHIFT.
[2022-12-05 07:45] VITALS: BP 179/86
--- NOTE | 2022-12-05 09:43 | NUR ---
REPORT CALLED TO ELIZABETH RIZZO AT THE [facility]. TRANSPORT SCHEDULED FOR 10AM. MR RIVERA' FAMILY IS HERE WITH HIM AND WILL [facility] TO HELP GET HIM SETTLED. PT HAS RUE POWERGLIDE IN PLACE, PATENT. ELIZABETH REQUESTED THAT IT BE KEPT IN PLACE. MR TOM IS ORIENTATED TO HIS NAME AND BIRTHDATE. HE TOOK HIS MEDS CRUSHED THIS AM IN [place] AND SWALLOWED THE WHOLE CUP WITHOUT PROBLEMS. HIS DAUGHTER SAID THAT HE IS MORE AWAKE THIS MORNING THAN HE HAS BEEN RECENTLY. HE IS TALKATIVE BUT CONFUSED. BED LOW, BED ALARM ON. CALL LIGHT IN REACH.
--- NOTE | 2022-12-05 10:16 | NUR ---
[facility] AT [id number]
[2022-12-05] MEDS ORDERED: Acetaminophen325 M1 PO (12:05)
[2022-12-05] MEDS ORDERED: CATAPRES-TTS 11 EAC1 TOP (12:07)
[2022-12-05] MEDS ORDERED: ALBU2.5V5 INH (12:07)
[2022-12-05] MEDS ORDERED: FAMO20 PO (12:07)
[2022-12-05] MEDS ORDERED: LISI20 PO (12:08)
[2022-12-05] MEDS ORDERED: Ativan1 MG PO (12:09)
[2022-12-05] MEDS ORDERED: ATROPINE SULFATE2 M1 SL (12:10)
[2022-12-05] MEDS ORDERED: IPRAT-ALBUT 0.5-3 ML INH (12:11)
[2022-12-05] MEDS ORDERED: MEMA5TAB PO (12:11)
[2022-12-05] MEDS ORDERED: METO50 PO (12:12)
[2022-12-05] MEDS ORDERED: OLAN5A MM (12:14)
[2022-12-05] MEDS ORDERED: MORP20L SL (12:14)
[2022-12-05] MEDS ORDERED: ONDA4ODT MM (12:15)
[2022-12-05] MEDS ORDERED: TRAZ50 PO (12:19)
[2022-12-05] MEDS ORDERED: TRANSDERM-SCOP1 EA10 TD (12:20)
[2022-12-05] MEDS ORDERED: ARTIFICIAL TEAR15 M6 BOTHEYES (12:23)
[2022-12-05] MEDS ORDERED: Prednisone10 MG PO (12:28)
== END 2022-12-05 10:13 | disposition hospice, home (50) | DRG 91 ==
LOC: PRE IP 14:17 → MEDS 15:20 → ICUE 15:20 → MEDS 23:20 → ICUE 11-28 19:37 → MEDS 11-30 17:53 → ENPENDDIS 12-05 09:23 → MEDS 12-05 10:13
PROVIDERS: Internal Medicine; Student in an Organized Health Care Education/Training Program; ADMIT Internal Medicine
PROC: 5A09457 Assistance with Respiratory Ventilation, 24-96 Consecutive Hours, Continuous Positive Airway Pressure (ICD-10-PCS; 2022-11-28)
PROC: 4A133R1 Monitoring of Arterial Saturation, Peripheral, Percutaneous Approach (ICD-10-PCS; principal; 2022-11-29)
PROC: 0T9B70Z Drainage of Bladder with Drainage Device, Via Natural or Artificial Opening (ICD-10-PCS; 2022-11-29)
DX: G92.8 Other toxic encephalopathy (principal); J96.01 Acute respiratory failure with hypoxia; J96.02 Acute respiratory failure with hypercapnia; J44.1 Chronic obstructive pulmonary disease with (acute) exacerbation; S32.029A Unspecified fracture of second lumbar vertebra, initial encounter for closed fracture; S32.049A Unspecified fracture of fourth lumbar vertebra, initial encounter for closed fracture; E87.1 Hypo-osmolality and hyponatremia; E87.0 Hyperosmolality and hypernatremia; I47.1 Supraventricular tachycardia; G31.83 Neurocognitive disorder with Lewy bodies; F02.80 Dementia in other diseases classified elsewhere, unspecified severity, without behavioral disturbance, psychotic disturbance, mood disturbance, and anxiety; I10 Essential (primary) hypertension; Z66 Do not resuscitate; Z51.5 Encounter for palliative care; E87.6 Hypokalemia; R13.10 Dysphagia, unspecified; Z20.822 Contact with and (suspected) exposure to COVID-19; F17.210 Nicotine dependence, cigarettes, uncomplicated; X58.XXXA Exposure to other specified factors, initial encounter; Z78.1 Physical restraint status
CPT/HCPCS: 0202U; 36415; 36600; 70450; 71045; 80048; 80053; 81001; 82803; 82947; 83735; 84100; 85025; 85027; 87086; 92610; 93005; 93010; 94640; 94660; 94760; 94762; A9270; C1751; J0360; J0696; J1200; J1650; J1885; J1940; J1956; J2060; J2270; J2930; J3475; J7030; J7050; J7512; U0002